=== PATIENT | male | born 1930 | race Caucasian/White ===

== ENCOUNTER 2022-01-27 12:32 | Emergency (ER) | payer OTHER ==
[~2022-01-27 12:32] MED LIST: Norepinephrine 4 MG/4 ML VIAL ONE; Sodium Chloride 0.9% 1,000 ML BAG ONE
[2022-01-27 13:08] LABS: Hemoglobin 10.2 g/dL (14.0-18.0); Mean Corpuscular HGB CONC 32.8 g/dL (32.0-36.0); Mean Corpuscular Hemoglobin 34.4 pg (27.0-31.0); Mean Corpuscular Volume 104.8 fL (78.0-98.0); Platelet Count 39 thou/uL (130-400); RBC Distribution Width 14.9 % (11.5-14.5); Red Blood Cell (RBC) Count 2.96 mill/uL (4.70-6.10); White Blood Cell (WBC) Count 5.5 thou/uL (4.8-10.8)
[2022-01-27] MEDS ORDERED: Sodium Chloride 0.9% 1,000 ML ONE ×2 (13:08→14:10)
[2022-01-27 13:24] LABS: ALT (SGPT) 36 U/L (8-55); AST (SGOT) 43 U/L (5-34); Albumin 3.3 g/dL (3.4-4.8); Alkaline Phosphatase 216 U/L (40-110); Anion Gap 17 mmol/L (10-20); BUN (Urea Nitrogen) 30 mg/dL (8.4-25.7); Bilirubin, Total 1.5 mg/dL (0.2-1.2); Calc. Creatinine Clearance 0 mL/min (70-130); Calcium 8.8 mg/dL (7.8-10.44); Carbon Dioxide 19 mmol/L (23-31); Chloride 100 mmol/L (98-107); Estimated GFR 45; Glucose 71 mg/dL (83-110); Magnesium 2.2 mg/dL (1.6-2.6); Potassium 3.8 mmol/L (3.5-5.1); Protein, Total 6.3 g/dL (5.8-8.1); Sodium 132 mmol/L (136-145)
[2022-01-27 13:27] LABS: Anisocytosis SLIGHT = 6-15 cells (100X) (0-5/hpf); Band 47 % (5-11); Eosinophils 1 % (0-10); Hypochromia SLIGHT = 6-15 cells (100X) (0-5/hpf); Lymphocytes 1 % (21-51); MDiff Complete? YES; Macrocytosis SLIGHT = 6-15 cells (100X) (0-5/hpf); Metamyelocyte 2 % (0-0); Microcytosis SLIGHT = 6-15 cells (100X) (0-5/hpf); Monocytes 5 % (0-10); Myelocyte 1 % (0-0); Neutrophil 42 % (42-75); Platelet Morphology Comment Appears Decreased; Reflex for Review?? YES
[2022-01-27 13:39] LABS: CKMB 2.4 ng/mL (0-6.6)
[2022-01-27 13:59] LABS: SARS-CoV-2 NAA Rapid Test Not Detected (NotDetected)
[2022-01-27 14:28] LABS: Bilirubin Small (Negative); Blood, Urine Negative (Negative); Clarity Slightly Cloudy (Clear); Glucose, Urine (Dipstick) 100 mg/dL (Negative); Ketone, Urine Trace mg/dL (Negative); Leukocyte Negative (Negative); Nitrite Positive (Negative); Protein, Urine (Dipstick) 30 mg/dL (Neg-Trace); Urobilinogen 0.2 mg/dL (Less than 2)
[2022-01-27 14:32] LABS: Bacteria/HPF Rare-Few HPF (None Seen); Squamous Epithelial 0-3 HPF (0-3); WBC/HPF 0-3 HPF (0-3)
[2022-01-27] MEDS ORDERED: cefTRIAXone\\ROCEPHIN 1 GM VIAL ONE (14:44)
[2022-01-27] MEDS ORDERED: Sodium Chloride 0.9% 100 ML ONE (14:44)
[2022-01-27] MEDS ORDERED: Norepinephrine 4 MG/4 ML VIAL ONE (15:24)
== END 2022-01-27 16:41 | disposition short-term general hospital (02) ==
LOC: MADERS 12:32
DX: A41.9 Sepsis, unspecified organism (principal); N39.0 Urinary tract infection, site not specified; E86.0 Dehydration; I50.9 Heart failure, unspecified; E03.9 Hypothyroidism, unspecified; Z20.822 Contact with and (suspected) exposure to COVID-19; Z79.899 Other long term (current) drug therapy; Z95.0 Presence of cardiac pacemaker; Z85.828 Personal history of other malignant neoplasm of skin
CPT/HCPCS: 51702; 71045; 80053; 81003; 81015; 82553; 83605; 83735; 83880; 84484; 85025; 85060; 87040; 87077; 87086; 87149; 87186; 87804; 93005; 94760; 96361; 96365; 96367; J0696; J3490; J7050; J7070; U0002